=== PATIENT | male | born 1940 | race Caucasian/White ===

== ENCOUNTER 2024-05-08 15:15 | Emergency (ER) | payer MEDICARE, BC, SELFPAY ==
[2024-05-08 15:25] VITALS: BP 155/97; PULSE 65; TEMP 36.4; O2SAT 98
[2024-05-08 17:15] VITALS: BMI 22.8
[2024-05-08 17:24] VITALS: BP 154/88; PULSE 67; TEMP 36.6; O2SAT 99
--- NOTE | 2024-05-08 17:26 | XR_ITS ---
Examination: CT abdomen and pelvis without contrast. Coronal 3-D reconstructions. Sagittal 2-D reconstructions. Date and time of exam:May 08, 2024 at 1839 hrs. Indications: Mid abdominal pain diarrhea beginning 5 days ago CTDI: vol (mGy): 8.55 DLP: (mGycm): 428 Technique: Axial images of the abdomen have been obtained, 3 mm slice thickness Intravenous contrast material has not been administered. Low dose protocols were performed. One or more of the following dose reduction techniques were used; automated exposure control, adjustment of the mA and/or KV according to patient size, use of iterative reconstruction technique. Findings: Multiple liver cysts, the largest in the dome of the liver on the right 7.5 cm Gallbladder wall appears thickened Spleen is not enlarged No pancreatic edema or pancreatic mass Common hepatic duct 10 mm Abdominal aortic calcification no aneurysmal dilatation No renal or ureteral calculi, no hydronephrosis Abdominal aortic calcification no aneurysmal dilatation Appendix is not diagnostically visualized, no pericecal inflammatory change Colonic diverticulosis Suspicious for diverticulitis in the colon at junction descending colon and sigmoid colon, axial image 137 on this noncontrast study Mildly distended urinary bladder,. Large amounts of stool in the rectum Transverse prostate dimension 4.3 cm Impression: Recommend hepatobiliary sonography follow-up to exclude gallbladder wall thickening and assess common hepatic duct Suspicious for diverticulitis in the colon age and descending colon and sigmoid colon, recommend repeating this study with intravenous contrast
--- NOTE | 2024-05-08 17:28 | EKG_ITS ---
[facility] Test Date: 2024-05-08 Pat Name: BONIFACIO QUIROGA Department: Room: - Gender: Male Certified Nursing Assistant: : 1940 Requested By: Fazal Reid Order Number: [id number] Reading MD: Fazal Reid Measurements Intervals [place] Rate: 63 P: [place]: QRS: 74 QRSD: 110 T: 59 QT: 390 QTc: 400 Interpretive Statements ATRIAL FIBRILLATION ABNORMAL RHYTHM ECG Compared to ECG 06/27/2021 09:53:25 Sinus rhythm no longer present /store/S0/[id number]
--- NOTE | 2024-05-08 17:29 | PD.EDRME ---
Rapid Medical Screening Exam [facility] Arrival date/time: 05/08/24 15:15 CC: Left lower quadrant abdominal pain HPI ongoing for the past 2 weeks progressive increase in severity mostly days not at nighttime 1 episode of constipation denies bloody urination but states he is currently on Cipro for a urinary tract infection no other complaints. Chief Complaint: Abdominal Pain Time Seen by Provider: 05/08/24 16:50 Vital signs: Vital Signs Temperature 97.5 F 05/08/24 15:25 Pulse Rate 65 05/08/24 15:25 Blood Pressure 155/97 H 05/08/24 15:25 Pulse Oximetry (%) 98 05/08/24 15:25 Oxygen Delivery Method Room Air 05/08/24 15:25
[2024-05-08 17:58] LABS: Basophils % (Auto) 0 % (0-2.5); Eosinophils # (Auto) 0.2 Thou/mm3 (0.0-0.5); Eosinophils % (Auto) 2 % (0-10); Hematocrit 36.6 % (41.0-53.0); Immature Granulocytes % (Auto) 0 % (0-0); Immature Granulocytes Auto 0.03 Thou/mm3 (0.00-0.00); Lymphocytes # (Auto) 0.8 Thou/mm3 (1.0-4.8); Lymphocytes % (Auto) 8 % (10-50); Mean Corpuscular HGB Conc 35.5 g/dl (31.0-37.0); Mean Corpuscular Hemoglobin 33.4 pg (25.0-35.0); Mean Corpuscular Volume 94 fL (80-100); Monocytes # (Auto) 1.3 Thou/mm3 (0.0-0.8); Monocytes % (Auto) 14 % (0-12); Neutrophils # (Auto) 6.7 Thou/mm3 (1.8-7.7); Neutrophils % (Auto) 75 % (37-80); Nucleated Red Blood Cell % 0 /100 WBC (0); Platelet Count 147 Thou/mm3 (140-440); RDW Standard Deviation 45.3 fL (35.1-43.9); Red Blood Count 3.89 Miln/mm3 (4.50-5.90); White Blood Count 8.9 Thou/mm3 (3.8-10.6)
[2024-05-08 18:09] LABS: INR 1.1 (0.9-1.3); Partial Thromboplastin Time 31.5 Seconds (22.0-36.0); Prothrombin Time 11.6 Seconds (9.0-12.2)
[2024-05-08 18:11] LABS: B-Type Natriuretic Peptide 237 pg/mL (0-100)
[2024-05-08 18:12] LABS: Alanine Aminotransferase 30 U/L (10-49); Albumin, Serum 4.5 gm/dL (3.4-4.8); Albumin/Globulin Ratio 2.6 (1.2-2.2); Alkaline Phosphatase 78 U/L (46-116); Anion Gap 3 (7-16); Aspartate Amino Transferase 23 U/L (0-34); BUN/Creatinine Ratio 12 Ratio (12-20); Bilirubin,Total 0.9 mg/dL (0.3-1.2); Blood Urea Nitrogen 12 mg/dL (9-23); Calcium 9.2 mg/dL (8.3-10.6); Calcium (Corrected) 9.2 mg/dL (8.5-10.1); Carbon Dioxide 28.5 mMol/L (20.0-31.0); Chloride 91 mMol/L (98-107); Estimated Creatinine Clearance 59.3 mL/min (>60); Globulin 1.7 gm/dL (2.3-3.5); Glucose 94 mg/dL (74-106); Lipase 60 U/L (12-53); Osmolality,Calculated 245 (275-295); Sodium 122 mMol/L (136-145); Total Protein 6.2 gm/dL (5.7-8.2); eGFR > 60 See Note
--- NOTE | 2024-05-08 18:24 | PD.EDADULT ---
ED General RME/HPI General Chief complaint: Abdominal Pain Stated complaint: left lower ab pain Time Seen by Provider: 05/08/24 16:50 Arrival date/time: 05/08/24 15:15 CC: Left lower quadrant abdominal pain HPI ongoing for the past 4 days absent at night only during the days currently on ciprofloxacin for UTI denies fever chills chest pain painful urination bloody urination diarrhea and 1 episode of constipation. RME / HPI RME / HPI narrative: 05/08/24 15:15 CC: Left lower quadrant abdominal pain HPI ongoing for the past 2 weeks progressive increase in severity mostly days not at nighttime 1 episode of constipation denies bloody urination but states he is currently on Cipro for a urinary tract infection no other complaints. Related Data Home Medications ?Medication ?Instructions ?Recorded ?Confirmed omeprazole 20 mg capsule,delayed 20 mg PO QDAY ##0 07/19/15 12/11/23 release (Prilosec) trazodone 50 mg tablet 50 mg PO HS 09/24/18 12/11/23 aspirin 81 mg tablet 81 mg PO QDAY 03/27/20 08/14/23 ascorbic acid (vitamin C) 500 mg 500 mg PO QDAY 06/27/21 12/11/23 tablet (Vitamin C) calcium carb-ergocalciferol (vit 1 tab PO DAILY 06/27/21 12/11/23 D2) 500 mg (1,250 mg)-200 unit tablet coenzyme Q10 100 mg capsule 100 mg PO QDAY 06/27/21 12/11/23 (CoQ-10) fluticasone propionate 50 2 spray intranasal QDAY 06/27/21 12/11/23 mcg/actuation nasal spray,suspension melatonin 10 mg tablet 10 mg PO HS PRN Sleep 06/27/21 12/11/23 turmeric 400 mg capsule 400 mg PO DAILY 06/27/21 12/11/23 vitamin A-vitamin C-vit E-min 1 tab PO QDAY 06/27/21 12/11/23 tablet apixaban 5 mg tablet (Eliquis) 5 mg PO BID 06/09/23 12/11/23 losartan 25 mg tablet 25 mg PO QDAY 08/14/23 12/11/23 rosuvastatin 5 mg tablet 5 mg PO QDAY 08/14/23 12/11/23 vibegron 75 mg tablet (Gemtesa) 75 mg PO QDAY 08/14/23 12/11/23 Previous Rx's ?Medication ?Instructions ?Recorded cephalexin 500 mg capsule 500 mg PO BID #6 caps 09/19/21 dicyclomine 20 mg tablet 20 mg PO BID #14 tabs 05/08/24 meloxicam 7.5 mg tablet 7.5 mg PO QDAY #10 tabs 05/08/24 metronidazole 500 mg tablet 500 mg PO BID 14 days #28 tabs 05/08/24 ondansetron 4 mg disintegrating 4 mg PO Q8H #14 tabs 05/08/24 tablet Allergies Allergy/AdvReac Type Severity Reaction Status Date / Time Sulfa (Sulfonamide Allergy Severe UNKNOWN Verified 05/08/24 15:16 Antibiotics) Review of Systems Review of Systems Narrative Review of Systems: GEN: No fever, no chills, no weight loss EYES: No discharge, no visual changes, no pain HEENT: No ear pain, no congestion, no sore throat PULM: No shortness of breath, no cough, no congestion CV: No chest pain, no dyspnea on exertion, no palpitations GI: No nausea, no vomiting, no diarrhea, + pain, no constipation : No frequency, no urgency, no dysuria MUSC/SKEL: No joint pain, no back pain SKIN: No rash PSYCH: No hallucinations, no depression HEME/LYMPH: No easy bleeding or bruising tendencies NEURO: No weakness, no headache ED Exam Narrative Physical exam: [General: Thin but not emaciated not in any acute distress Head normocephalic HEENT: Within acceptable limits Neck is supple nontender Chest equal chest rise nontender to palpation Respiratory: Clear to auscultation no wheezes crackles or rubs CV: Rate rhythm is regular no murmurs rubs or clicks Abdomen is soft flat, no pain with deep palpation all 4 quadrants Back: No CVA tenderness no spinous process tenderness from cervical spine thoracic and lumbar spine Skin: Intact no petechiae rash induration ulceration or crepitus Extremities: Moving all extremity against resistance cap refill less than 2 seconds neurosensory intact Neuro: Awake alert oriented x3 Glascow coma 15 no focal deficits] Course Quality Measures none Orders Category Date Time Status EKG (ED ONLY) *Do not use* NOW Care 05/08/24 17:28 Completed NPO STAT Care 05/08/24 17:[address] abdomen pelvis wo con Stat Exams 05/08/24 17:26 Completed EKG (ED Only) Stat Exams 05/08/24 17:28 Draft B-Type Natriuretic Peptide Stat Lab 05/08/24 17:39 Completed CBC Stat Lab 05/08/24 17:39 Completed Comprehensive Metabolic Panel Stat Lab 05/08/24 17:39 Completed Drug Screen,Urine Stat Lab 05/08/24 17:28 Ordered Lipase Stat Lab 05/08/24 17:39 Completed Magnesium Stat Lab 05/08/24 17:39 Completed Partial Thromboplastin Time Stat Lab 05/08/24 17:39 Completed Prothrombin Time with INR Stat Lab 05/08/24 17:39 Completed Urinalysis Stat Lab 05/08/24 17:27 Ordered Vital Signs Vital signs: Vital Signs Temperature 97.5 F 05/08/24 15:25 Pulse Rate 65 05/08/24 15:25 Blood Pressure 155/97 H 05/08/24 15:25 Pulse Oximetry (%) 98 05/08/24 15:25 Oxygen Delivery Method Room Air 05/08/24 15:25 [facility] Patient data External records reviewed:: [facility] previous records Clinical information provided by:: patient Social determinants that could affect healthcare access:: none Patient has the following chronic illnesses:: On blood thinners hypertension How is presenting disease/condition affected by chronic disease/condition?: uneffected by Evaluation data The following diagnostics were reviewed and interpreted by me:: lab results and radiology exam(s) Lab and/or radiology exams considered but not ordered:: CBC shows no acute leukocytosis stable anemia no thrombocytopenia CMP shows no significant electrolyte imbalances renal impairment transaminitis or T. bili elevation Lipase is mildly elevated at 60 CT is positive for diverticulitis Interpretation Summary: Diverticulitis Medications Medications considered but not ordered:: None Medication administrations:: None Consultations Consultation(s) initiated? (list below): No Diagnosis Differential Diagnosis ED Complaint MDM: Diverticulitis diverticulosis ileus Most likely diagnosis given after review of the tests above:: Diverticulitis Admission Indicated Admission indicated?: not indicated Explain why admission is indicated or not indicated:: Stable for outpatient follow-up Admission Request Was there a request for admission?: No Disposition Plan Disposition Plan: Discharge Discharge Attestation Discharge Attestation: The patient and all family members were given an opportunity to ask questions and understood the discharge instructions. Discharge instructions specifically effects, indications for sooner follow up or return to the emergency department, and the expected course of current diagnosis. Patient condition: Stable Medical Decision Making Differential Diagnosis Differential Diagnosis: Diverticulitis diverticulosis ileus Lab Data 05/08/24 17:39 05/08/24 17:39 Labs: Lab Results 05/08/24 Range/Units 17:39 WBC 8.9 (3.8-10.6) Thou/mm3 RBC 3.89 L (4.50-5.90) Miln/mm3 Hgb 13.0 L (13.5-16.0) g/dL Hct 36.6 L (41.0-53.0) % MCV 94 (80-100) fL MCH 33.4 (25.0-35.0) pg MCHC 35.5 (31.0-37.0) g/dl RDW Std Deviation 45.3 H (35.1-43.9) fL Plt Count 147 (140-440) Thou/mm3 Neut % (Auto) 75 (37-80) % Lymph % (Auto) 8 L (10-50) % Stevens % (Auto) 14 H (0-12) % Eos % (Auto) 2 (0-10) % Baso % (Auto) 0 (0-2.5) % Neut # (Auto) 6.7 (1.8-7.7) Thou/mm3 Lymph # (Auto) 0.8 L (1.0-4.8) Thou/mm3 Stevens # (Auto) 1.3 H (0.0-0.8) Thou/mm3 Eos # (Auto) 0.2 (0.0-0.5) Thou/mm3 Baso # (Auto) 0.0 (0.0-0.2) Thou/mm3 Immature Gran # (Auto) 0.03 H (0.00-0.00) Thou/mm3 Absolute Nucleated RBC 0.00 (0.00-0.00) Thou/mm3 Immature Gran % 0 (0-0) % Nucleated RBC % 0 (0) /100 WBC PT 11.6 (9.0-12.2) Seconds INR 1.1 (0.9-1.3) APTT 31.5 (22.0-36.0) Seconds Sodium 122 L (136-145) mMol/L Potassium 5.0 (3.4-5.1) mMol/L Chloride 91 L (98-107) mMol/L Carbon Dioxide 28.5 (20.0-31.0) mMol/L Anion Gap 3 L (7-16) BUN 12 (9-23) mg/dL Creatinine 1.0 (0.6-1.3) mg/dL Estim Creat Clear Calc 59.3 L (>60) mL/min eGFR > 60 (60 - ) See Note BUN/Creatinine Ratio 12 (12-20) Ratio Glucose 94 (74-106) mg/dL Calculated Osmolality 245 L (275-295) Calcium 9.2 (8.3-10.6) mg/dL Corrected Calcium 9.2 (8.5-10.1) mg/dL Magnesium 2.0 (1.6-2.6) mg/dL Total Bilirubin 0.9 (0.3-1.2) mg/dL AST 23 (0-34) U/L ALT 30 (10-49) U/L Alkaline Phosphatase 78 (46-116) U/L B-Natriuretic Peptide 237 H (0-100) pg/mL Total Protein 6.2 (5.7-8.2) gm/dL Albumin 4.5 (3.4-4.8) gm/dL Globulin 1.7 L (2.3-3.5) gm/dL Albumin/Globulin Ratio 2.6 H (1.2-2.2) Lipase 60 H (12-53) U/L Discharge Plan Plan Patient Disposition: HOME (Self Care) Patient condition on transfer: Stable Prescriptions/Referrals Prescriptions/Med Rec: New metronidazole 500 mg tablet 500 mg PO BID 14 Days Qty: 28 0RF dicyclomine 20 mg tablet 20 mg PO BID Qty: 14 0RF ondansetron 4 mg tablet,disintegrating 4 mg PO Q8H Qty: 14 0RF meloxicam 7.5 mg tablet 7.5 mg PO QDAY Qty: 10 0RF No Action losartan 25 mg tablet 25 mg PO QDAY rosuvastatin 5 mg tablet 5 mg PO QDAY Gemtesa 75 mg tablet 75 mg PO QDAY Eliquis 5 mg tablet 5 mg PO BID omeprazole [Prilosec] 20 MG capsule,delayed release(DR/EC) 20 mg PO QDAY Qty: 0 Patient Comments: TO SUPPRESS GASTRIC ACID SECRETIONS ascorbic acid (vitamin C) [Vitamin C] 500 mg Tablet 500 mg PO QDAY calcium carbonate-vitamin D2 500 mg(1,250mg) -200 unit Tablet 1 tab PO DAILY fluticasone propionate 50 mcg/actuation [place],Suspension 2 spray INTRANASAL QDAY Hold Instructions: Resume on 10/04/21. vitamin A-vitamin C-vit E-min Tablet 1 tab PO QDAY coenzyme Q10 [CoQ-10] 100 mg Capsule 100 mg PO QDAY melatonin 10 mg Tablet 10 mg PO HS PRN (Reason: Sleep) turmeric 400 mg Capsule 400 mg PO DAILY cephalexin 500 mg capsule 500 mg PO BID Qty: 6 0RF trazodone 50 mg Tablet 50 mg PO HS aspirin 81 mg Tablet 81 mg PO QDAY Referrals: Ana Swann MD [Primary Care Provider] - In 1 week Problem List Clinical Impression: Diverticulitis, Abdominal pain, left lower quadrant Patient/Caregiver Discharge Instructions Education Materials: Abdominal Pain, ED Diet, [place] (Adult), ED Diverticulitis Additional Instructions: Take the medications as prescribed bland diet follow-up with your primary care provider if there is a worsening of symptoms spite of medications return the emergency room immediately for further evaluation. Print Language: Tamazight Stand Alone Forms: Keli Award Info., Work/School Release, Patient Portal Info Letter GAGAN/JASON Supervising Physician GAGAN/JASON Supervising Physician: Fazal Diego ENP
[2024-05-08 19:32] VITALS: RESP 18
== END 2024-05-08 19:32 | disposition home or self-care (01) ==
PROVIDERS: Registered Nurse General Practice; Emergency Provider Emergency Medicine; PCP Family Medicine
DX: K57.32 Diverticulitis of large intestine without perforation or abscess without bleeding (principal); I48.91 Unspecified atrial fibrillation; Z79.01 Long term (current) use of anticoagulants
CPT/HCPCS: 36415; 74176; 80053; 80307; 81001; 83690; 83735; 83880; 85025; 85610; 85730; 93005; 99284

== ENCOUNTER → 2024-05-24 | Outpatient (CLI) | payer MEDICARE, BC, SELFPAY ==
[2024-05-24 16:42] LABS: Lipase 54 U/L (12-53)
== END | disposition home or self-care (01) ==
LOC: COPL 14:37
PROVIDERS: PCP Family Medicine; Referring Provider Nurse Practitioner Family; Visit Provider Nurse Practitioner Family
DX: R74.8 Abnormal levels of other serum enzymes (principal)
CPT/HCPCS: 36415; 83690

== ENCOUNTER 2024-05-31 09:06 | Day surgery (SDC) | payer MEDICARE, BC, SELFPAY ==
--- NOTE | 2024-05-30 11:45 | EKG_ITS ---
[facility] Test Date: 2024-05-30 Pat Name: BONIFACIO QUIROGA Department: Room: - Gender: Male Fitness Professional: RSJC : 1940 Requested By: Sabino Carter Order Number: [id number] Reading MD: Sabino Carter Measurements Intervals [place] Rate: 56 P: [place]: QRS: 84 QRSD: 106 T: 64 QT: 414 QTc: 400 Interpretive Statements ATRIAL FIBRILLATION WITH SLOW VENTRICULAR RESPONSE ABNORMAL RHYTHM ECG Compared to ECG 05/08/2024 17:41:36 No significant changes /store/S0/[id number]/[id number]
[2024-05-30 12:36] LABS: Basophils % (Auto) 1 % (0-2.5); Eosinophils # (Auto) 0.2 Thou/mm3 (0.0-0.5); Eosinophils % (Auto) 3 % (0-10); Hematocrit 37.7 % (41.0-53.0); Hemoglobin 12.9 g/dL (13.5-16.0); Immature Granulocytes % (Auto) 0 % (0-0); Immature Granulocytes Auto 0.02 Thou/mm3 (0.00-0.00); Lymphocytes # (Auto) 0.6 Thou/mm3 (1.0-4.8); Lymphocytes % (Auto) 9 % (10-50); Mean Corpuscular HGB Conc 34.2 g/dl (31.0-37.0); Mean Corpuscular Hemoglobin 33.1 pg (25.0-35.0); Mean Corpuscular Volume 97 fL (80-100); Monocytes # (Auto) 0.8 Thou/mm3 (0.0-0.8); Monocytes % (Auto) 12 % (0-12); Neutrophils # (Auto) 4.9 Thou/mm3 (1.8-7.7); Neutrophils % (Auto) 75 % (37-80); Nucleated Red Blood Cell % 0 /100 WBC (0); Platelet Count 193 Thou/mm3 (140-440); RDW Standard Deviation 48.3 fL (35.1-43.9); White Blood Count 6.6 Thou/mm3 (3.8-10.6)
[2024-05-30 12:45] LABS: Anion Gap 3 (7-16); BUN/Creatinine Ratio 15 Ratio (12-20); Blood Urea Nitrogen 16 mg/dL (9-23); Calcium 9.2 mg/dL (8.3-10.6); Carbon Dioxide 29.7 mMol/L (20.0-31.0); Chloride 94 mMol/L (98-107); Creatinine (Component) 1.1 mg/dL (0.6-1.3); Glucose 84 mg/dL (74-106); Osmolality,Calculated 255 (275-295); Potassium 4.8 mMol/L (3.4-5.1); Sodium 127 mMol/L (136-145); eGFR > 60 See Note
[2024-05-30 12:51] LABS: Partial Thromboplastin Time 26.5 Seconds (22.0-36.0); Prothrombin Time 10.9 Seconds (9.0-12.2)
[2024-05-30 13:56] VITALS: BMI 22.4
[2024-05-31] VITALS (11 sets, daily range): BP systolic 118–166; BP diastolic 58–84; PULSE 48–63; RESP 11–18; TEMP 36.7–36.9; O2SAT 96–100; BMI 22.4
--- NOTE | 2024-05-31 10:36 | CHAP ---
Patient is known to me. We spoke briefly and had prayer for upcoming procedure.
--- NOTE | 2024-06-01 14:32 | ESOP_ITS ---
RE: BONIFACIO QUIROGA : 1940 DATE OF OPERATION: 05/31/2024 PROCEDURE PERFORMED: 1. Diagnostic right and left heart cardiac catheterization, selective coronary angiogram, and left ventricular angiogram, CPT 55909. 2. Conscious sedation 30 minute duration. 3. Ultrasound-guided access, right radial artery. 4. Left ventricular angiogram. DIAGNOSES: Severe aortic stenosis, shortness of breath and chest pain. HISTORY AND INDICATIONS: The patient is an 84-year-old male with a past medical history of atrial fibrillation, hypertension, severe aortic stenosis. He has been having progressive shortness of breath and minimal exertion and symptomatic severe aortic stenosis on maximum medical management. Cardiac echo showed evidence of severe aortic stenosis. The aortic velocity is close to 4 m/sec and normal ejection fraction. The patient was recommended to have TAVR procedure, transcatheter aortic valve replacement. Cardiac catheterization and coronary angiogram was recommended prior to recommending aortic valve replacement. DESCRIPTION OF PROCEDURE: The patient was brought to cardiac catheterization laboratory where he was given 2 mg of Versed and 50 mcg of fentanyl, conscious sedation. Right radial artery was cannulated by micropuncture technique and a 6-Kittitian Glidesheath was introduced. Right femoral approach was taken for femoral vein. Right femoral vein was cannulated by Seldinger technique and 7-Kittitian sheath was introduced. Right heart catheterization was performed with Finley-Rudolph catheter. Right heart pressures were measured. Left heart catheterization was performed by a 5-Kittitian AL1 diagnostic catheter. Pull back pressure was measured. Cardiac output was obtained. Subsequently, a 5-[place]ittitian Pigtail catheter was advanced into the aortic root. Aortic root angiogram was performed. Subsequently, selective right and left coronary angiogram performed by using a TIG-4 diagnostic catheter. The patient tolerated the procedure well. No complications. Cardiac catheterization showed following findings. HEMODYNAMICS: Right atrial pressure is 8 mmHg. RV pressure 34/2 mmHg. End-diastolic pressure 8 mmHg. PA pressure 30/11. Mean pressure 19 mmHg. Pulmonary artery wedge pressure and mean pressure 16, V-wave was 27. Left ventricle pressure is recorded to be 157. End diastolic pressure 10 mmHg. The aortic pressure is recorded to be 128/60 mmHg. There is a mean gradient of 32 mmHg across the aortic valve and aortic valve area was 0.8 square cm. Cardiac output was 3.9 L/min. Left ventricular angiogram showed normal left ventricular wall motion, ejection fraction 60%. Aortic valve area showed heavy calcification, very minimal opening. Aortic root angiogram showed evidence of normal-sized aorta. There was evidence of severe aortic stenosis and minimal aortic regurgitation. Coronary artery angiogram showed following findings. Right coronary artery is large and dominant, appeared normal, gives off PDA, posterior descending artery appeared normal. Left coronary system: Left main coronary artery is normal, left anterior descending artery appears normal, circumflex artery is normal and codominant. SUMMARY OF FINDINGS: 1. Severe calcific aortic stenosis, aortic valve area is 0.8 square cm. 2. Mean gradient of 32 mmHg across the aortic valve. 3. Nonobstructive normal epicardial coronary arteries. 4. Normal right heart pressures. 5. Normal pulmonary artery pressure. RECOMMENDATIONS: The patient has symptomatic severe calcific aortic stenosis. Recommended to have transcatheter aortic valve replacement surgery. We will refer the patient for TAVR program. Dr. Sanders will be performing the procedure. DT: 13:24:32 TT: 14:31:00 Ref: [id number] - TID: [id number]
== END 2024-05-31 15:00 | disposition home or self-care (01) ==
PROVIDERS: PCP Family Medicine; Referring Provider Internal Medicine Cardiovascular Disease; Visit Provider Internal Medicine Cardiovascular Disease
PROC: (CPT 93460; principal; 2024-05-31 10:30)
DX: I25.118 Atherosclerotic heart disease of native coronary artery with other forms of angina pectoris (principal); I50.32 Chronic diastolic (congestive) heart failure; I35.0 Nonrheumatic aortic (valve) stenosis; Z01.810 Encounter for preprocedural cardiovascular examination; I48.21 Permanent atrial fibrillation; I34.0 Nonrheumatic mitral (valve) insufficiency; I70.213 Atherosclerosis of native arteries of extremities with intermittent claudication, bilateral legs; I11.0 Hypertensive heart disease with heart failure; I48.91 Unspecified atrial fibrillation
CPT/HCPCS: 93460; 36415; 80048; 85025; 85610; 85730; 93005; 99152; 99153; A4649; C1769; C1887; C1894; J0171; J0461; J1643; J2250; J2310; J2371; J3010; J3490; Q9967; J1644; J2305

== ENCOUNTER → 2024-05-31 | Outpatient (CLI) | payer MEDICARE, BC, SELFPAY ==
[2024-05-31 15:57] LABS: Collection Type, Urine Clean Catch; Squamous Epithelial Cell,Urine 0 /hpf (0-5)
[2024-05-31 18:07] LABS: Bilirubin,Urine Negative (Negative); Blood,Urine Negative (Negative); Clarity,Urine Clear (Clear/Hazy); Color,Urine Lt-Yellow (Lt Yel-Yel); Glucose, Urine Negative (Negative); Ketones,Urine Negative (Negative); Leukocyte Esterase,Urine Negative (Negative); Nitrite,Urine Negative (Negative); PH,Urine 6.5 (5.0-7.0); Protein,Urine Negative (Neg - Trace); RBC,Urine < 1 /hpf (0-3); Specific Gravity,Urine 1.008 (1.001-1.035); Urobilinogen,Urine Negative mg/dL (0.0-1.0); WBC,Urine 3 /hpf (0-5)
== END | disposition home or self-care (01) ==
LOC: SLDO 15:43
PROVIDERS: PCP Family Medicine; Referring Provider Nurse Practitioner Family; Visit Provider Nurse Practitioner Family
DX: N41.0 Acute prostatitis (principal); J01.90 Acute sinusitis, unspecified
CPT/HCPCS: 81001; 87086

== ENCOUNTER → 2024-06-03 | Outpatient (BNVA) | payer MEDICARE, BC, SELFPAY | END | disposition home or self-care (01) | PROVIDERS: PCP Family Medicine; Referring Provider Family Medicine; Visit Provider Urology | DX: N40.1 Benign prostatic hyperplasia with lower urinary tract symptoms (principal); N13.8 Other obstructive and reflux uropathy; N31.9 Neuromuscular dysfunction of bladder, unspecified; N39.0 Urinary tract infection, site not specified; I10 Essential (primary) hypertension; K21.9 Gastro-esophageal reflux disease without esophagitis | CPT/HCPCS: 99212; G0463 ==

== ENCOUNTER 2024-06-15 22:04 | Emergency (ER) | payer MEDICARE, BC, SELFPAY ==
[2024-06-15 22:06] VITALS: BMI 23.0
[2024-06-15 22:39] VITALS: BP 139/82; PULSE 89; RESP 18; TEMP 36.9; O2SAT 98
[2024-06-15] MEDS: AMOXICILLIN/POT CLAV 875 TABLET 1 TAB PO (23:14)
[2024-06-15] MEDS: DIPHTH,PERTUSS(ACELL),TET VAC 0.5 ML VIAL IMi (23:16)
[2024-06-15] MEDS: LIDOCAINE HCL 1% 20 ML VIAL INFL (23:16)
[2024-06-15] MEDS: BACITRACIN OINT 1 GM PACKET TOP (23:24)
--- NOTE | 2024-06-15 23:51 | EDNOTE_ITS ---
ED Wound/Laceration-RME/HPI General Chief Complaint: Extremity Injury, Lower Stated Complaint: INJURY TO LEFT LEG Time Seen by Provider: 06/15/24 22:41 Arrival date/time: 06/15/24 22:04 RME / HPI RME / HPI narrative: This section includes all my notes and documentations, including HPI, PE, and ED course. Jaswant Richards MD HPI: 84-year-old male here to be evaluated with left lower leg laceration. Occurred at home just prior to arrival. He had to get up on his kitchen counter to fix his sliding patio door. As he was getting down, he sustained a laceration on a metal doorknob of a cupboard. He didn't fall. No head injury. No other complaints. ROS: All negative except as documented in HPI. Physical Exam: General: Alert and oriented. No acute distress when remaining still. Eyes: Conjunctivae and lids clear. ENT: No nasal congestion. Neck: Supple. Lungs: No respiratory distress. Skin: Warm and dry. In the left lower leg, there is a curved 12 cm full?skin thickness laceration with active bleeding. Multiple abrasions noted in the left hand and left lower leg, varying size and shape. Neuro: Alert and oriented X 3. Musculoskeletal: All major joints and bones are not tender with no limited ROM. Laceration repair procedure note: The wound was prepped and draped in normal sterile fashion. Local anesthesia achieved with 1% lidocaine. Profuse irrigation performed under the sink with soap and water and with normal saline. Wound repaired with 16 simple sutures using 4-0 nylon. Good approximation and hemostasis achieved. Tdap and Augmentin annual 75 mg given. Topical ABX and dressing applied. Patient tolerated well with no complications. Provided good wound care instructions. Based on my best medical judgment, made decision no further evaluation or treatment indicated at this time. Patient understands and agrees to the discharge instructions customized and printed, see below. Discharge instructions from Dr. Richards:? -- Your laceration was repaired with 16 stitches. -- Keep the current dressing intact for 48 hours. -- After 48 hours, change the dressing once daily. -- First remove the dressing gently.? If it does not come off easily, run water through it until it comes off easily. -- Then gently wash with soap and water. -- After completely drying, apply antibiotic ointment and new dressing. -- Elevate above the waist level today and tomorrow as much as possible.? -- Take Augmentin to prevent infection. -- See your doctor or return here in 10-14 days for suture removal.? Total of 16 stitches. -- Seek immediate medical care with fever, spreading redness from the wound, or with any concerns. Jaswant Richards MD Related Data Home Medications ?Medication ?Instructions ?Recorded ?Confirmed omeprazole 20 mg capsule,delayed 20 mg PO QDAY ##0 07/19/15 06/03/24 release (Prilosec) trazodone 50 mg tablet 100 mg PO HS 09/24/18 06/03/24 apixaban 5 mg tablet (Eliquis) 5 mg PO BID 06/09/23 06/03/24 losartan 25 mg tablet 25 mg PO QDAY 08/14/23 06/03/24 rosuvastatin 5 mg tablet 5 mg PO QDAY 08/14/23 06/03/24 vibegron 75 mg tablet (Gemtesa) 75 mg PO QDAY 08/14/23 06/03/24 furosemide 20 mg tablet (Lasix) 20 mg PO BID 05/31/24 06/03/24 metoprolol tartrate 50 mg tablet 50 mg PO QDAY 05/31/24 06/03/24 spironolactone 25 mg tablet 25 mg PO BID 05/31/24 06/03/24 amoxicillin 250 mg-potassium 1 tab PO BID 06/03/24 06/03/24 clavulanate 125 mg tablet methenamine hippurate 1 gram tablet 1 g PO BID 06/03/24 06/03/24 tramadol 50 mg tablet 50 mg PO QDAY 06/03/24 06/03/24 Previous Rx's ?Medication ?Instructions ?Recorded acetaminophen 300 mg-codeine 30 mg 2 tab PO TID PRN pain #4 tabs 06/15/24 tablet amoxicillin 875 mg-potassium 1 tab PO BID #4 tabs 06/15/24 clavulanate 125 mg tablet Allergies Allergy/AdvReac Type Severity Reaction Status Date / Time Sulfa (Sulfonamide Allergy Severe UNKNOWN Verified 06/15/24 22:09 Antibiotics) Course Quality Measures none Orders Category Date Time Status Wound Care [Wound Care] NOW Care 06/15/24 22:52 Completed Drug Screen,Urine Stat Lab 06/15/24 23:57 Completed Urinalysis Stat Lab 06/15/24 23:57 Completed Urine Culture Stat Lab 06/15/24 23:57 Received Amoxicillin/Pot Clav 875 [Augmentin 875] Med 06/15/24 22:51 Discontinued 1 tab PO X1 ONE Bacitracin Oint pkt Med 06/15/24 22:51 Discontinued 1 gm TOP X1 ONE Lidocaine 1% 20 ml [Xylocaine 1% 20 ML] Med 06/15/24 22:51 Discontinued 20 ml INFL X1 ONE Tet,Diphth,Pertuss(Acell)-Tdap [Boostrix Vacc] Med 06/15/24 22:51 Discontinued 0.5 ml IMI .ONCE ONE Vital Signs Vital signs: Vital Signs Temperature 98.4 F 06/15/24 22:39 Pulse Rate 89 06/15/24 22:39 Respiratory Rate 18 06/15/24 22:39 Blood Pressure 139/82 H 06/15/24 22:39 Pulse Oximetry (%) 98 06/15/24 22:39 Oxygen Delivery Method Room Air 06/15/24 22:39 Procedures -ED Laceration Laceration 1: Site: lower extremity Side (If applicable): left Size (cm): 12 Description: flap Depth: simple, single layer Local Anesthetic: lidocaine 1% Amount of anesthesia used (mL): 12 Pre-repair: irrigated extensively Skin layer closed with: nylon Size (cm): 4-0 Number of sutures: 16 Technique: simple, interrupted Wound / Laceration Patient data External records reviewed:: [facility] previous records Clinical information provided by:: patient and family Social determinants that could affect healthcare access:: none Patient has the following chronic illnesses:: Hypertension How is presenting disease/condition affected by chronic disease/condition?: uneffected by Evaluation data The following diagnostics were reviewed and interpreted by me:: other (specify) (No diagnostic tests ordered) Lab and/or radiology exams considered but not ordered:: None Interpretation Summary: No diagnostic tests ordered Medications / Prescriptions Medications or Prescriptions considered but not ordered:: None Medication administrations:: Medication Administration History Discontinued Medications Amoxicillin/Clavulanate Potassium (Amoxicillin/Pot Clav 875 Tablet) 1 tab PO X1 ONE Stop: 06/15/24 22:52 Last Admin: 06/15/24 23:14 Dose: 1 tab Documented By: Bacitracin (Bacitracin Oint 1 Gm Packet) 1 gm TOP X1 ONE Stop: 06/15/24 22:52 Last Admin: 06/15/24 23:24 Dose: 1 gm Documented By: Diphtheria/Tetanus/Acell Pertussis (Diphth,Pertuss(Acell),Tet Vac 0.5 Ml Vial) 0.5 ml IMi .ONCE ONE Stop: 06/15/24 22:52 Last Admin: 06/15/24 23:16 Dose: 0.5 ml Documented By: Lidocaine HCl (Lidocaine Hcl 1% 20 Ml Vial) 20 ml INFL X1 ONE Stop: 06/15/24 22:52 Last Admin: 06/15/24 23:16 Dose: 20 ml Documented By: Tdap and lidocaine and topical bacitracin and Augmentin Consultations Consultation(s) initiated? (list below): No Diagnosis Wound Differential Diagnosis: laceration and abrasion Most likely diagnosis given after review of the tests above:: Laceration and abrasions Admission Indicated Admission indicated?: not indicated Explain why admission is indicated or not indicated:: Admission criteria not met Admission Request Was there a request for admission?: No Disposition Plan Disposition Plan: Discharge Discharge Attestation Discharge Attestation: The patient and all family members were given an opportunity to ask questions and understood the discharge instructions. Discharge instructions specifically effects, indications for sooner follow up or return to the emergency department, and the expected course of current diagnosis. Patient condition: Stable Discharge Plan Plan Patient Disposition: HOME (Self Care) Prescriptions/Referrals Prescriptions/Med Rec: New acetaminophen-codeine 300-30 mg tablet 2 tab PO TID MDD 6 PRN (Reason: pain) Qty: 4 0RF amoxicillin-pot clavulanate 875-125 mg tablet 1 tab PO BID Qty: 4 0RF No Action losartan 25 mg tablet 25 mg PO QDAY rosuvastatin 5 mg tablet 5 mg PO QDAY Gemtesa 75 mg tablet 75 mg PO QDAY amoxicillin-pot clavulanate 250-125 mg tablet 1 tab PO BID tramadol 50 mg tablet 50 mg PO QDAY methenamine hippurate 1 gram tablet 1 g PO BID Eliquis 5 mg tablet 5 mg PO BID Hold Instructions: Resume on 12/12/24. omeprazole [Prilosec] 20 MG capsule,delayed release(DR/EC) 20 mg PO QDAY Qty: 0 Patient Comments: TO SUPPRESS GASTRIC ACID SECRETIONS trazodone 50 mg Tablet 100 mg PO HS spironolactone 25 mg Tablet 25 mg PO BID metoprolol tartrate 50 mg Tablet 50 mg PO QDAY furosemide [Lasix] 20 mg Tablet 20 mg PO BID Referrals: Ana Swann MD [Primary Care Provider] - In 1 week Problem List Clinical Impression: Laceration of left lower leg, Multiple abrasions Patient/Caregiver Discharge Instructions Discharge Activity: activity as tolerated Education Materials: ED Laceration: All Closures Additional Instructions: Discharge instructions from Dr. Richards:? -- Your laceration was repaired with 16 stitches. -- Keep the current dressing intact for 48 hours. -- After 48 hours, change the dressing once daily. -- First remove the dressing gently.? If it does not come off easily, run water through it until it comes off easily. -- Then gently wash with soap and water. -- After completely drying, apply antibiotic ointment and new dressing. -- Elevate above the waist level today and tomorrow as much as possible.? -- Take Augmentin to prevent infection. -- See your doctor or return here in 10-14 days for suture removal.? Total of 16 stitches. -- Seek immediate medical care with fever, spreading redness from the wound, or with any concerns. Print Language: Hebrew Stand Alone Forms: Keli Award Info., Patient Portal Info Letter
[2024-06-16 00:03] LABS: Collection Type, Urine Clean Catch; RBC,Urine 0 /hpf (0-3); Squamous Epithelial Cell,Urine 0 /hpf (0-5)
[2024-06-16 00:13] LABS: Bacteria,Urine Rare; Bilirubin,Urine Negative (Negative); Blood,Urine Negative (Negative); Clarity,Urine Clear (Clear/Hazy); Color,Urine Yellow (Lt Yel-Yel); Glucose, Urine Negative (Negative); Ketones,Urine Negative (Negative); Leukocyte Esterase,Urine Positive (Negative); Nitrite,Urine Negative (Negative); PH,Urine 6.5 (5.0-7.0); Protein,Urine Trace (Neg - Trace); Specific Gravity,Urine 1.018 (1.001-1.035); Urobilinogen,Urine Negative mg/dL (0.0-1.0); WBC,Urine 11 /hpf (0-5)
[2024-06-16 01:01] LABS: Amphetamine/Methamp Scrn,U Negative (Negative); Barbiturate Screen,Urine Negative (Negative); Benzodiazepines Screen,Urine Negative (Negative); Benzoylecgonine Screen, Ur Negative (Negative); Fentanyl Screen,Urine Negative (Negative); Opiate Screen,Urine Negative (Negative); THC Screen,Urine Negative (Negative)
== END 2024-06-16 00:44 | disposition home or self-care (01) ==
PROVIDERS: Emergency Provider Emergency Medicine; PCP Family Medicine
DX: S81.812A Laceration without foreign body, left lower leg, initial encounter (principal); S60.512A Abrasion of left hand, initial encounter; W22.8XXA Striking against or struck by other objects, initial encounter; Y93.89 Activity, other specified; Y92.000 Kitchen of unspecified non-institutional (private) residence as the place of occurrence of the external cause; Z23 Encounter for immunization
CPT/HCPCS: 12004; 80307; 80320; 81001; 87077; 87086; 87186; 90471; 90715; 99283; J3490; A9270; G0480

== ENCOUNTER → 2024-06-20 | Outpatient (CLI) | payer MEDICARE, BC, SELFPAY | END | disposition home or self-care (01) | LOC: SLDO 16:13 | PROVIDERS: PCP Nurse Practitioner Family; Referring Provider Nurse Practitioner Family; Visit Provider Nurse Practitioner Family | DX: L03.116 Cellulitis of left lower limb (principal) | CPT/HCPCS: 87070; 87205 ==

== ENCOUNTER → 2024-06-23 | Outpatient (CLI) | payer MEDICARE, BC, SELFPAY | END | disposition home or self-care (01) | LOC: SLDO 15:41 | PROVIDERS: PCP Nurse Practitioner Family; Referring Provider Nurse Practitioner Family; Visit Provider Nurse Practitioner Family | DX: S81.812D Laceration without foreign body, left lower leg, subsequent encounter (principal); X58.XXXD Exposure to other specified factors, subsequent encounter | CPT/HCPCS: 87070; 87075; 87205 ==

== ENCOUNTER → 2024-07-15 | Outpatient (CLI) | payer MEDICARE, BC, SELFPAY ==
[2024-07-15 14:58] LABS: Collection Type, Urine Clean Catch; Squamous Epithelial Cell,Urine 0 /hpf (0-5)
[2024-07-15 16:11] LABS: Bilirubin,Urine Negative (Negative); Blood,Urine 1+ (Negative); Glucose, Urine Negative (Negative); Ketones,Urine Negative (Negative); Leukocyte Esterase,Urine Positive (Negative); Nitrite,Urine Negative (Negative); PH,Urine 6.5 (5.0-7.0); Protein,Urine 1+ (Neg - Trace); RBC,Urine 6 /hpf (0-3); Specific Gravity,Urine 1.006 (1.001-1.035); Urobilinogen,Urine Negative mg/dL (0.0-1.0); WBC,Urine 669 /hpf (0-5)
[2024-07-15 16:15] LABS: Clarity,Urine Turbid (Clear/Hazy); Color,Urine Amber (Lt Yel-Yel)
== END | disposition home or self-care (01) ==
LOC: COPL 14:50
PROVIDERS: PCP Nurse Practitioner Family; Referring Provider Nurse Practitioner Family; Visit Provider Nurse Practitioner Family
DX: N30.00 Acute cystitis without hematuria (principal)
CPT/HCPCS: 81001; 87077; 87086; 87186

== ENCOUNTER → 2024-07-26 | Outpatient (CLI) | payer MEDICARE, BC, SELFPAY | END | disposition home or self-care (01) | PROVIDERS: PCP Nurse Practitioner Family; Referring Provider Nurse Practitioner Family; Visit Provider Student in an Organized Health Care Education/Training Program | DX: S81.802A Unspecified open wound, left lower leg, initial encounter (principal); W19.XXXA Unspecified fall, initial encounter; L97.822 Non-pressure chronic ulcer of other part of left lower leg with fat layer exposed; C44.202 Unspecified malignant neoplasm of skin of right ear and external auricular canal; E03.9 Hypothyroidism, unspecified; I05.0 Rheumatic mitral stenosis; I35.0 Nonrheumatic aortic (valve) stenosis; N40.0 Benign prostatic hyperplasia without lower urinary tract symptoms; H91.90 Unspecified hearing loss, unspecified ear; K21.9 Gastro-esophageal reflux disease without esophagitis | CPT/HCPCS: 11042; 97597; 99213; A9270; G0463 ==

== ENCOUNTER → 2024-07-28 | Outpatient (CLI) | payer MEDICARE, BC, SELFPAY | END | disposition home or self-care (01) | LOC: SWHD 15:12 | PROVIDERS: Visit Provider Student in an Organized Health Care Education/Training Program | DX: S81.802A Unspecified open wound, left lower leg, initial encounter (principal); X58.XXXA Exposure to other specified factors, initial encounter; L97.822 Non-pressure chronic ulcer of other part of left lower leg with fat layer exposed; C44.202 Unspecified malignant neoplasm of skin of right ear and external auricular canal; I05.0 Rheumatic mitral stenosis; I35.0 Nonrheumatic aortic (valve) stenosis; N40.0 Benign prostatic hyperplasia without lower urinary tract symptoms; H91.90 Unspecified hearing loss, unspecified ear; K21.9 Gastro-esophageal reflux disease without esophagitis | CPT/HCPCS: 29580 ==

== ENCOUNTER → 2024-08-02 | Outpatient (CLI) | payer MEDICARE, BC, SELFPAY | END | disposition home or self-care (01) | LOC: SWHD 10:03 | PROVIDERS: Referring Provider Student in an Organized Health Care Education/Training Program; Visit Provider Student in an Organized Health Care Education/Training Program | DX: S81.802A Unspecified open wound, left lower leg, initial encounter (principal); W19.XXXA Unspecified fall, initial encounter; L97.822 Non-pressure chronic ulcer of other part of left lower leg with fat layer exposed; C44.202 Unspecified malignant neoplasm of skin of right ear and external auricular canal; E03.9 Hypothyroidism, unspecified; I05.0 Rheumatic mitral stenosis; I35.0 Nonrheumatic aortic (valve) stenosis; N40.0 Benign prostatic hyperplasia without lower urinary tract symptoms; H91.90 Unspecified hearing loss, unspecified ear; K21.9 Gastro-esophageal reflux disease without esophagitis | CPT/HCPCS: 11042; A9270 ==

== ENCOUNTER → 2024-08-03 | Outpatient (CLI) | payer MEDICARE, BC, SELFPAY ==
[2024-08-03 17:28] LABS: Collection Type, Urine Clean Catch
[2024-08-03 18:04] LABS: Bacteria,Urine Rare; Bilirubin,Urine Negative (Negative); Blood,Urine Negative (Negative); Clarity,Urine Turbid (Clear/Hazy); Color,Urine Lt-Yellow (Lt Yel-Yel); Glucose, Urine Negative (Negative); Ketones,Urine Negative (Negative); Leukocyte Esterase,Urine Positive (Negative); Nitrite,Urine Negative (Negative); Protein,Urine Negative (Neg - Trace); RBC,Urine 14 /hpf (0-3); Specific Gravity,Urine 1.006 (1.001-1.035); Squamous Epithelial Cell,Urine < 1 /hpf (0-5); Urobilinogen,Urine Negative mg/dL (0.0-1.0); WBC,Urine 168 /hpf (0-5)
== END | disposition home or self-care (01) ==
LOC: SLDO 17:23
PROVIDERS: PCP Nurse Practitioner Family; Referring Provider Nurse Practitioner Family; Visit Provider Nurse Practitioner Family
DX: N30.00 Acute cystitis without hematuria (principal)
CPT/HCPCS: 81001; 87077; 87086; 87186

== ENCOUNTER → 2024-08-10 | Outpatient (CLI) | payer MEDICARE, BC, SELFPAY ==
[2024-08-10 16:29] LABS: Collection Type, Urine Clean Catch; Squamous Epithelial Cell,Urine 0 /hpf (0-5)
[2024-08-10 18:28] LABS: Bilirubin,Urine Negative (Negative); Blood,Urine Negative (Negative); Clarity,Urine Clear (Clear/Hazy); Color,Urine Lt-Yellow (Lt Yel-Yel); Glucose, Urine Negative (Negative); Ketones,Urine Negative (Negative); Leukocyte Esterase,Urine Positive (Negative); Nitrite,Urine Negative (Negative); PH,Urine 6.5 (5.0-7.0); Protein,Urine Negative (Neg - Trace); RBC,Urine 5 /hpf (0-3); Specific Gravity,Urine 1.009 (1.001-1.035); Urobilinogen,Urine Negative mg/dL (0.0-1.0); WBC,Urine 105 /hpf (0-5)
== END | disposition home or self-care (01) ==
LOC: SLDO 16:16
PROVIDERS: PCP Registered Nurse; Referring Provider Registered Nurse; Visit Provider Registered Nurse
DX: N39.0 Urinary tract infection, site not specified (principal)
CPT/HCPCS: 81001; 87086

== ENCOUNTER → 2024-08-11 | Outpatient (CLI) | payer MEDICARE, BC, SELFPAY | END | disposition home or self-care (01) | LOC: SWHD 09:40 | PROVIDERS: PCP Family Medicine; Referring Provider Family Medicine; Visit Provider Student in an Organized Health Care Education/Training Program | DX: S81.802A Unspecified open wound, left lower leg, initial encounter (principal); W19.XXXA Unspecified fall, initial encounter; L97.822 Non-pressure chronic ulcer of other part of left lower leg with fat layer exposed; C44.202 Unspecified malignant neoplasm of skin of right ear and external auricular canal; E03.9 Hypothyroidism, unspecified; I05.0 Rheumatic mitral stenosis; I35.0 Nonrheumatic aortic (valve) stenosis; N40.0 Benign prostatic hyperplasia without lower urinary tract symptoms; H91.90 Unspecified hearing loss, unspecified ear; K21.9 Gastro-esophageal reflux disease without esophagitis | CPT/HCPCS: 11042; A9270 ==

== ENCOUNTER → 2024-08-15 | Outpatient (BNVA) | payer MEDICARE, BC, SELFPAY | END | disposition home or self-care (01) | PROVIDERS: PCP Nurse Practitioner Family; Referring Provider Nurse Practitioner Family; Visit Provider Urology | DX: N40.1 Benign prostatic hyperplasia with lower urinary tract symptoms (principal); N13.8 Other obstructive and reflux uropathy; N31.9 Neuromuscular dysfunction of bladder, unspecified; N39.0 Urinary tract infection, site not specified; I10 Essential (primary) hypertension; K21.9 Gastro-esophageal reflux disease without esophagitis | CPT/HCPCS: 99212; G0463 ==

== ENCOUNTER → 2024-08-16 | Outpatient (CLI) | payer MEDICARE, BC, SELFPAY | END | disposition home or self-care (01) | LOC: SWHD 14:15 | PROVIDERS: Visit Provider Surgery | DX: S81.802A Unspecified open wound, left lower leg, initial encounter (principal); W19.XXXA Unspecified fall, initial encounter; L97.822 Non-pressure chronic ulcer of other part of left lower leg with fat layer exposed; C44.202 Unspecified malignant neoplasm of skin of right ear and external auricular canal; E03.9 Hypothyroidism, unspecified; I05.0 Rheumatic mitral stenosis; I35.0 Nonrheumatic aortic (valve) stenosis; N40.0 Benign prostatic hyperplasia without lower urinary tract symptoms; H91.90 Unspecified hearing loss, unspecified ear; K21.9 Gastro-esophageal reflux disease without esophagitis | CPT/HCPCS: 11042; A9270 ==

== ENCOUNTER → 2024-08-23 | Outpatient (CLI) | payer MEDICARE, BC, SELFPAY | END | disposition home or self-care (01) | LOC: SWHD 14:08 | PROVIDERS: Visit Provider Student in an Organized Health Care Education/Training Program | DX: S81.802A Unspecified open wound, left lower leg, initial encounter (principal); X58.XXXA Exposure to other specified factors, initial encounter; L97.822 Non-pressure chronic ulcer of other part of left lower leg with fat layer exposed; C44.202 Unspecified malignant neoplasm of skin of right ear and external auricular canal; E03.9 Hypothyroidism, unspecified; I05.0 Rheumatic mitral stenosis; I35.0 Nonrheumatic aortic (valve) stenosis; N40.0 Benign prostatic hyperplasia without lower urinary tract symptoms; H91.90 Unspecified hearing loss, unspecified ear; K21.9 Gastro-esophageal reflux disease without esophagitis | CPT/HCPCS: 97597; A9270 ==

== ENCOUNTER → 2024-08-30 | Outpatient (CLI) | payer MEDICARE, BC, SELFPAY | END | disposition home or self-care (01) | LOC: SWHD 11:22 | PROVIDERS: Visit Provider Surgery | DX: S81.802A Unspecified open wound, left lower leg, initial encounter (principal); X58.XXXA Exposure to other specified factors, initial encounter; L97.822 Non-pressure chronic ulcer of other part of left lower leg with fat layer exposed; C44.202 Unspecified malignant neoplasm of skin of right ear and external auricular canal; E03.9 Hypothyroidism, unspecified; I05.0 Rheumatic mitral stenosis; I35.0 Nonrheumatic aortic (valve) stenosis; N40.0 Benign prostatic hyperplasia without lower urinary tract symptoms; H91.90 Unspecified hearing loss, unspecified ear; K21.9 Gastro-esophageal reflux disease without esophagitis | CPT/HCPCS: 97597; A9270 ==

== ENCOUNTER → 2024-09-08 | Outpatient (CLI) | payer MEDICARE, BC, SELFPAY | END | disposition home or self-care (01) | LOC: SWHD 11:19 | PROVIDERS: Visit Provider Student in an Organized Health Care Education/Training Program | DX: S81.802A Unspecified open wound, left lower leg, initial encounter (principal); W19.XXXA Unspecified fall, initial encounter; L97.822 Non-pressure chronic ulcer of other part of left lower leg with fat layer exposed; C44.202 Unspecified malignant neoplasm of skin of right ear and external auricular canal; E03.9 Hypothyroidism, unspecified; I05.0 Rheumatic mitral stenosis; I35.0 Nonrheumatic aortic (valve) stenosis; N40.0 Benign prostatic hyperplasia without lower urinary tract symptoms; H91.90 Unspecified hearing loss, unspecified ear; K21.9 Gastro-esophageal reflux disease without esophagitis | CPT/HCPCS: 29581; A9270 ==

== ENCOUNTER → 2024-09-15 | Outpatient (CLI) | payer MEDICARE, BC, SELFPAY | END | disposition home or self-care (01) | LOC: SWHD 11:18 | PROVIDERS: PCP Nurse Practitioner Family; Referring Provider Nurse Practitioner Family; Visit Provider Student in an Organized Health Care Education/Training Program | DX: S81.802A Unspecified open wound, left lower leg, initial encounter (principal); W19.XXXA Unspecified fall, initial encounter; L97.822 Non-pressure chronic ulcer of other part of left lower leg with fat layer exposed; C44.202 Unspecified malignant neoplasm of skin of right ear and external auricular canal; E03.9 Hypothyroidism, unspecified; I05.0 Rheumatic mitral stenosis; I35.0 Nonrheumatic aortic (valve) stenosis; N40.0 Benign prostatic hyperplasia without lower urinary tract symptoms; H91.90 Unspecified hearing loss, unspecified ear; K21.9 Gastro-esophageal reflux disease without esophagitis | CPT/HCPCS: 99213; A9270; G0463 ==

== ENCOUNTER → 2024-10-04 | Outpatient (BNVA) | payer MEDICARE, BC, SELFPAY | END | disposition home or self-care (01) | PROVIDERS: PCP Family Medicine; Referring Provider Family Medicine; Visit Provider Urology | DX: N40.0 Benign prostatic hyperplasia without lower urinary tract symptoms (principal); N31.9 Neuromuscular dysfunction of bladder, unspecified; Z87.440 Personal history of urinary (tract) infections; I10 Essential (primary) hypertension; Z95.2 Presence of prosthetic heart valve | CPT/HCPCS: 81003; 99212; G0463 ==

== ENCOUNTER → 2024-10-06 | Outpatient (CLI) | payer MEDICARE, BC, SELFPAY | END | disposition home or self-care (01) | LOC: SWHD 11:02 | PROVIDERS: PCP Nurse Practitioner Family; Referring Provider Nurse Practitioner Family; Visit Provider Student in an Organized Health Care Education/Training Program | DX: S81.802A Unspecified open wound, left lower leg, initial encounter (principal); W19.XXXA Unspecified fall, initial encounter; L97.822 Non-pressure chronic ulcer of other part of left lower leg with fat layer exposed; C44.202 Unspecified malignant neoplasm of skin of right ear and external auricular canal; E03.9 Hypothyroidism, unspecified; I05.9 Rheumatic mitral valve disease, unspecified; I35.0 Nonrheumatic aortic (valve) stenosis; N40.0 Benign prostatic hyperplasia without lower urinary tract symptoms; H91.90 Unspecified hearing loss, unspecified ear; K21.9 Gastro-esophageal reflux disease without esophagitis; R60.0 Localized edema; R58 Hemorrhage, not elsewhere classified | CPT/HCPCS: 99212; G0463 ==

== ENCOUNTER → 2024-10-28 | Outpatient (CLI) | payer MEDICARE, BC, SELFPAY ==
[2024-10-28 16:20] LABS: Collection Type, Urine Clean Catch
[2024-10-28 18:04] LABS: Bacteria,Urine 1+; Bilirubin,Urine Negative (Negative); Blood,Urine 1+ (Negative); Color,Urine Yellow (Lt Yel-Yel); Glucose, Urine Negative (Negative); Ketones,Urine Negative (Negative); Leukocyte Esterase,Urine Positive (Negative); Nitrite,Urine Negative (Negative); PH,Urine 5.5 (5.0-7.0); Protein,Urine 1+ (Neg - Trace); RBC,Urine 3 /hpf (0-3); Specific Gravity,Urine 1.015 (1.001-1.035); Squamous Epithelial Cell,Urine 1 /hpf (0-5); Urobilinogen,Urine Negative mg/dL (0.0-1.0); WBC,Urine 1867 /hpf (0-5)
[2024-10-28 18:07] LABS: Clarity,Urine Turbid (Clear/Hazy)
== END | disposition home or self-care (01) ==
LOC: SLDO 16:17
PROVIDERS: PCP Nurse Practitioner Family; Referring Provider Nurse Practitioner Family; Visit Provider Nurse Practitioner Family
DX: N30.00 Acute cystitis without hematuria (principal)
CPT/HCPCS: 81001; 87077; 87086; 87186

== ENCOUNTER 2024-12-20 16:14 | Emergency (ER) | payer MEDICARE, BC, SELFPAY ==
[2024-12-20 16:16] VITALS: BMI 21.9
[2024-12-20 16:25] VITALS: BP 143/67; PULSE 62; RESP 18; TEMP 36.9; O2SAT 97
[2024-12-20] MEDS: DIPHTH,PERTUSS(ACELL),TET VAC 0.5 ML SYR- ADULT IMi (17:15)
--- NOTE | 2024-12-20 17:44 | EDNOTE_ITS ---
<Statement entered by Naty Yanez MD - 12/30/24 19:38> As co-signing physician, I was present and available for consult prn. I concur with the plan and care as documented by the midlevel provider. ED Wound/Laceration-RME/HPI General Chief Complaint: Wound/Laceration Stated Complaint: LAC R) ARM Time Seen by Provider: 12/20/24 16:38 Source: patient Arrival date/time: 12/20/24 16:14 84-year-old male with no known medical history presents to the emergency room with a chief complaint of a skin tear to his right forearm. Patient states he was at the park and was sitting on a picnic table got up and cut himself 1 hour ago. Mode of arrival: ambulatory Limitations: no limitations Related Data Home Medications ?Medication ?Instructions ?Recorded ?Confirmed omeprazole 20 mg capsule,delayed 20 mg PO QDAY ##0 10/04/24 release (Prilosec) trazodone 50 mg tablet 100 mg PO HS 09/24/18 apixaban 5 mg tablet (Eliquis) 5 mg PO BID 06/09/23 Held on 05/31/24. Instructions: Resume on 06/02/24. losartan 25 mg tablet 25 mg PO QDAY 08/14/2310/04 rosuvastatin 5 mg tablet 5 mg PO QDAY 08/14/23 vibegron 75 mg tablet (Gemtesa) 75 mg PO QDAY 08/14/23 10/04/24 furosemide 20 mg tablet (Lasix) 20 mg PO BID 05/31/24 10/04/24 metoprolol tartrate 50 mg tablet 50 mg PO QDAY 4 10/04/24 spironolactone 25 mg tablet 25 mg PO BID 05/31/2409/20 tramadol 50 mg tablet 50 mg PO QDAY 06/03/2410/04 ciprofloxacin HCl 500 mg tablet 500 mg PO DIRECTED 08/15/24 10/04/24 Previous Rx's ?Medication ?Instructions ?Recorded acetaminophen 300 mg-codeine 30 mg 2 tab PO TID PRN pa in #4 tabs 06/15/24 tablet amoxicillin 875 mg-potassium 1 tab PO BID #4 tabs /11/12 clavulanate 125 mg tablet cephalexin 500 mg capsule 500 mg PO BID 7 days #14 cap s 12/20/24 Allergies Allergy/AdvReac Type Severity Reaction Status Date / Time Sulfa (Sulfonamide Allergy Severe UNKNOWN Verified 12/20/24 16:19 Antibiotics) Review of Systems Review of Systems Systems Reviewed: All systems reviewed, normal except as documented Constitutional Constitutional: Reports system reviewed and no additional complaints, except as documented, Denies fatigue, Denies fever(s), Denies headache(s) and Denies weakness Eyes Eyes: Reports system reviewed and no additional complaints, except as documented, Denies blurry vision and Denies change in vision ENT Ears, Nose, Mouth, and Throat: Reports system reviewed and no additional complaints, except as documented, Denies otalgia, Denies headache(s), Denies nasal congestion, Denies throat swelling and Denies vertigo Cardiovascular Cardiovascular: Reports system reviewed and no additional complaints, except as documented, Denies chest pain, Denies dyspnea and Denies dyspnea on exertion Respiratory Respiratory: Reports system reviewed and no additional complaints, except as documented, Denies chest congestion, Denies cough, Denies dyspnea, Denies dyspnea on exertion and Denies wheezing Gastrointestinal Gastrointestinal: Reports system reviewed and no additional complaints, except as documented, Denies abdominal pain, Denies cramping, Denies nausea and Denies vomiting Genitourinary Genitourinary: Reports system reviewed and no additional complaints, except as documented, Denies dysuria and Denies hematuria Musculoskeletal Musculoskeletal: Reports system reviewed and no additional complaints, except as documented and Denies back pain Integumentary/Breasts Skin/Breast: Reports system reviewed and no additional complaints, except as documented and Reports wounds Neurologic Neurologic: Reports system reviewed and no additional complaints, except as documented, Denies confusion, Denies headache(s), Denies lack of coordination, Denies vertigo and Denies weakness Psychiatric Psychiatric: Reports system reviewed and no additional complaints, except as documented, Denies anxiety, Denies confusion, Denies depression, Denies paranoia, Denies suicidal ideation and Denies tactile hallucinations Endocrine Endocrine: Reports system reviewed and no additional complaints, except as documented and Denies fatigue Hematologic/Lymphatic Hematologic/Lymphatic: Reports system reviewed and no additional complaints, except as documented and Denies lymphadenopathy Allergic/Immunologic Allergic/Immunologic: Reports system reviewed and no additional complaints, except as documented, Denies throat swelling, Denies urticaria and Denies wheezing ED Exam General Limitations: Present no limitations General appearance: Present alert and in no apparent distress Head Head exam: Present atraumatic Eye Eye exam: Present normal appearance, PERRL and EOMI ENT ENT exam: Present normal exam, normal oropharynx and mucous membranes moist Neck Neck exam: Present normal inspection, full ROM and trachea midline Chest Chest inspection: Present normal inspection and symmetric chest wall rise Respiratory Respiratory exam: Present normal lung sounds bilaterally Cardiovascular Cardiovascular exam: Present regular rate, normal rhythm and normal heart sounds Abdominal Exam Abdominal exam: Present soft and normal bowel sounds Extremities Exam Extremities exam: Present normal inspection and full ROM Back Exam Back exam: Present normal inspection and full ROM Neurological Exam Neurological exam: Present alert, oriented X3 and CN II-XII intact Psychiatric Psychiatric exam: Present normal affect and normal mood Skin Skin exam: Present warm, dry, intact and normal color Expanded Skin Exam Type of lesion: Present laceration and other (Skin tear) Distribution: Present RUE Description: Present tenderness Body image: 2 1. Skin tear to his right forearm Course Quality Measures none Orders Category Date Time Status Set Up Suture Tray STAT Care 12/20/24 16:38 Active Wound Care NOW Care 12/20/24 16:38 Active Lidocaine 1% 20 ml [Xylocaine 1% 20 ML] Med 12/20/24 16:38 Discontinued 20 ml INFL X1 ONE TET,DIP/PERT AC (Adult)-Tdap [Boostrix Adult (Tdap) Med 12/20/24 16:38 Discontinued Vacc] 0.5 ml IMI .ONCE ONE Vital Signs Vital signs: Vital Signs Temperature 98.4 F 12/20/24 16:25 Pulse Rate 62 12/20/24 16:25 Respiratory Rate 18 12/20/24 16:25 Blood Pressure 143/67 H 12/20/24 16:25 Pulse Oximetry (%) 97 12/20/24 16:25 Oxygen Delivery Method Room Air 12/20/24 16:25 Wound / Laceration MDM Narrative MDM Narrative:: 84-year-old male with no known medical history presents to the emergency room with a chief complaint of a skin tear to his right forearm. Patient states he was at the park and was sitting on a picnic table got up and cut himself 1 hour ago. Patient is hemodynamically stable and in no apparent distress Physical examination shows an irregular skin tear to his right forearm. The skin tear is about 6 cm. There is no deep laceration area is very superficial. Area was cleaned and prepped and irrigated. It was irrigated with normal saline and cleaned and prepped with Betadine. There is no need to suture the skin tear what I did was get the edges as close as possible and Dermabond it. The area was closed and approximated using Dermabond and the patient was educated to follow-up with his primary care provider. Patient was discharged and educated to follow-up with primary care provider in the next 24 to 48 hours and return to the emergency room for any evidence of worsening signs or symptoms Patient data External records reviewed:: [facility] previous records Clinical information provided by:: patient Social determinants that could affect healthcare access:: none Patient has the following chronic illnesses:: No chronic illness How is presenting disease/condition affected by chronic disease/condition?: no chronic disease Evaluation data The following diagnostics were reviewed and interpreted by me:: lab results and radiology exam(s) Lab and/or radiology exams considered but not ordered:: Labs and radiology exams considered in Interpretation Summary: N/A Medications / Prescriptions Medications or Prescriptions considered but not ordered:: Medication given Medication administrations:: Medication Administration History Discontinued Medications Diphtheria/Tetanus/Acell Pertussis (Diphth,Pertuss(Acell),Tet Vac 0.5 Ml Syr- Adult) 0.5 ml IMi .ONCE ONE Stop: 12/20/24 16:39 Last Admin: 12/20/24 17:15 Dose: 0.5 ml Documented By: REX Lidocaine HCl (Lidocaine Hcl 1% 20 Ml Vial) 20 ml INFL X1 ONE Stop: 12/20/24 16:39 Last Admin: 12/20/24 17:16 Dose: Not Given Documented By: REX Non-Admin Reason: Cancelled by Provider Medication given Consultations Consultation(s) initiated? (list below): No Diagnosis Wound Differential Diagnosis: laceration, abscess and avulsion of skin Most likely diagnosis given after review of the tests above:: Avulsion of skin Admission Indicated Admission indicated?: not indicated Admission Request Was there a request for admission?: No Disposition Plan Disposition Plan: Discharge Discharge Attestation Discharge Attestation: The patient and all family members were given an opportunity to ask questions and understood the discharge instructions. Discharge instructions specifically effects, indications for sooner follow up or return to the emergency department, and the expected course of current diagnosis. Patient condition: Stable Discharge Plan Plan Patient Disposition: HOME (Self Care) Discharge Disposition comment: Stable Prescriptions/Referrals Prescriptions/Med Rec: New cephalexin 500 mg capsule 500 mg PO BID 7 Days Qty: 14 0RF No Action losartan 25 mg tablet 25 mg PO QDAY rosuvastatin 5 mg tablet 5 mg PO QDAY Gemtesa 75 mg tablet 75 mg PO QDAY tramadol 50 mg tablet 50 mg PO QDAY Eliquis 5 mg tablet 5 mg PO BID ciprofloxacin HCl 500 mg tablet 500 mg PO DIRECTED Patient Comments: take bid for 7 days, then once a day after that. omeprazole [Prilosec] 20 MG capsule,delayed release(DR/EC) 20 mg PO QDAY Qty: 0 Patient Comments: TO SUPPRESS GASTRIC ACID SECRETIONS trazodone 50 mg Tablet 100 mg PO HS spironolactone 25 mg Tablet 25 mg PO BID metoprolol tartrate 50 mg Tablet 50 mg PO QDAY furosemide [Lasix] 20 mg Tablet 20 mg PO BID acetaminophen-codeine 300-30 mg tablet 2 tab PO TID MDD 6 PRN (Reason: pain) Qty: 4 0RF amoxicillin-pot clavulanate 875-125 mg tablet 1 tab PO BID Qty: 4 0RF Problem List Clinical Impression: Skin tear of forearm without complication Patient/Caregiver Discharge Instructions Education Materials: ED Laceration: Skin Adhesive Additional Instructions: Please follow-up with your primary care provider in the next 24 to 48 hours Your skin tear was closed and approximated using Dermabond. A dressing was placed. Please keep this dressing in place for the next 24 to 48 hours Afterwards you can clean it with soap and water. Antibiotics were sent to your pharmacy to help prevent any infection For any evidence of worsening signs or symptoms return to the emergency room immediately Print Language: Tamazight Stand Alone Forms: Keli Award Info., Patient Portal Info Letter PA/JASON Supervising Physician GAGAN/JASON Supervising Physician: Dr. YANEZ
[2024-12-20 18:05] VITALS: BP 130/66; PULSE 72; RESP 18; TEMP 36.5; O2SAT 99
== END 2024-12-20 18:05 | disposition home or self-care (01) ==
LOC: SERX 18:13
PROVIDERS: Emergency Provider Emergency Medicine; PCP Family Medicine
DX: S51.811A Laceration without foreign body of right forearm, initial encounter (principal); W45.8XXA Other foreign body or object entering through skin, initial encounter; Y92.830 Public park as the place of occurrence of the external cause; Z23 Encounter for immunization
CPT/HCPCS: 12002; 90715; 99283

== ENCOUNTER 2025-02-16 13:53 | Outpatient (RCR) | payer MEDICARE, BC, SELFPAY ==
--- NOTE | 2025-02-17 09:51 | PTNOTE_ITS ---
PT OP Initial Eval Patient Information Outpatient Physical Therapy Treatment Date: 02/16/25 Visit Reasons: low back pain Medical Diagnosis: Low back pain; scoliosis, stenosis, DDD Treatment Dx #1: Back Pain Start of Care: 02/17/25 Date of Onset: 1 year ago Smoking Status Smoking Status: Never smoker Initial Assessment Subjective: Pt is a 84 y/o male reports of chronic right back pain (5/10) intermittently started after he fell ~ 1 year ago. Pt's most recent imaging found scoliosis, DDD, and stenosis in the lumbar region. Pt denies of pain down the legs. Pt has limitation with prolonged sitting, standing, chores, self care, cooking, cleaning, walking, and performing recreational activities. Pt had aortic valva replacement in August and started cardiopulmonary rehab at [facility] ~ 2 weeks ago Objective: L/S AROM (in sitting ): all motions are WFL except neutral with extension due to pain Hip PROM: all motions are WFL Hip MMTs L: grossly 3+/5 R: 3/5 Muscle Length: Hs tightness Palpation: TTP and hypomobile right L4-L5 facets Assessment: Pt demonstrate back pain consistent with facet syndrome leading to difficulty with ADLs. Pt will attempt physical therapy if pain persist Pt will be refer back to specialist for further consultation. Short Term and Senior Living Goals 1) Increase L/S AROM WFL in 6 wks to be able to sit and stand more than 30 mins 2) Increase core strength WFL in 6 wks to be able to perform recreational activities 3) Increase hip MMTs grossly to 4-/5 in 6 wks to be able to walk more than 30 mins 4) Decrease back pain to 2/10 in 6 wks to be able to perform chores 5) Indep with HEP Treatment Plan 1) Manual Therapy 2) Therapeutic Activities 3) Therapeutic Exercises 4) Modalities (ice, heat) Frequency and Duration: 2 x wk for 6 wks Certification Dates: 02/17/25 to 05/20/25 Procedure Charges OP PT Eval Mod Complex 30 minutes: Yes
== END 2025-02-19 23:59 | disposition home or self-care (01) ==
LOC: CPTX 13:53
PROVIDERS: PCP Nurse Practitioner Family; Referring Provider Nurse Practitioner Family; Visit Provider Nurse Practitioner Family
DX: M51.360 Other intervertebral disc degeneration, lumbar region with discogenic back pain only (principal); M41.9 Scoliosis, unspecified; M48.061 Spinal stenosis, lumbar region without neurogenic claudication; R26.2 Difficulty in walking, not elsewhere classified; G89.29 Other chronic pain
CPT/HCPCS: 97162

== ENCOUNTER 2025-03-14 14:30 | Outpatient (RCR) | payer MEDICARE, BC, SELFPAY ==
--- NOTE | 2025-02-21 16:05 | PT.ODAYNRPT ---
PT Outpatient Daily Note OP Daily Note Outpatient Physical Therapy Treatment Date: 02/21/25 Visit Reasons: LOW BACK PAIN Subjective: Pt's back is okay and continues to have pain on the right side. Pt has cardiopulmonary rehab mondays and wednesdays Objective: Please see flow chart for list of ther ex performed Assessment: only able to tolerate 10-15 reps for each exercises due to fatigue. Minimal changes in pain post PT session Plan: Continue with PT Length of Time (minutes) of Treatment: 30 Minutes Procedure Charges Therapeutic Exercise 30 minutes: Yes
--- NOTE | 2025-02-28 15:06 | PT.ODAYNRPT ---
PT Outpatient Daily Note OP Daily Note Outpatient Physical Therapy Treatment Date: 02/28/25 Visit Reasons: LOW BACK PAIN Subjective: Pt's back is sore and overall very exhausted after last PT session. Pt's back still ache intermittently on the right side. Objective: Please see flow chart for list of ther ex performed Assessment: educated patient about DOMS and how it affects muscle pain. Pt is okay with possibly changing therapy to 1x weekly for his back and 2x weekly for cardiopulmonary moving forward since back to back session is causing over exhaustion. Pt reports of decrease back pain post PT session Plan: Continue with PT Length of Time (minutes) of Treatment: 30 Minutes Procedure Charges Therapeutic Exercise 30 minutes: Yes
--- NOTE | 2025-03-03 14:32 | PT.ODAYNRPT ---
PT Outpatient Daily Note OP Daily Note Outpatient Physical Therapy Treatment Date: 03/03/25 Visit Reasons: LOW BACK PAIN Subjective: Pt's back is sore and ache. Pt notice minimal improvement of the pain Objective: Please see flow chart for list of ther ex performed Assessment: repots of soreness post STM. Pt exhibit improvement with Hs length bilaterally Plan: Continue with PT Length of Time (minutes) of Treatment: 30 Minutes Procedure Charges Therapeutic Exercise 15 minutes: Yes Manual Store Stock Associate 15 minutes: Yes
--- NOTE | 2025-03-14 14:38 | PT.ODAYNRPT ---
PT Outpatient Daily Note OP Daily Note Outpatient Physical Therapy Treatment Date: 03/14/25 Visit Reasons: LOW BACK PAIN Subjective: Pt's back continues to ache. Pt mention STM made him more sore after last session. Pt wants to continue to use the heat for the back. Objective: Please see flow chart for list of ther ex performed Assessment: notice reports of less back pain with supine exercises and stretching today. Pt sore post STM. Plan: Continue with PT Length of Time (minutes) of Treatment: 30 Minutes Procedure Charges Therapeutic Exercise 15 minutes: Yes Manual Racker Octave Board 15 minutes: Yes
== END 2025-03-21 23:59 | disposition home or self-care (01) ==
LOC: CPTX 14:30
PROVIDERS: PCP Nurse Practitioner Family; Referring Provider Nurse Practitioner Family; Visit Provider Nurse Practitioner Family
DX: M51.360 Other intervertebral disc degeneration, lumbar region with discogenic back pain only (principal); M41.86 Other forms of scoliosis, lumbar region; M48.061 Spinal stenosis, lumbar region without neurogenic claudication
CPT/HCPCS: 97110; 97140

== ENCOUNTER 2025-03-27 16:36 | Emergency (ER) | payer MEDICARE, BC, SELFPAY ==
--- NOTE | 2025-03-27 16:41 | EKG_ITS ---
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
[2025-03-27 16:42] VITALS: BP 153/70; PULSE 68; RESP 20; TEMP 37.2; O2SAT 95; BMI 23.0
--- NOTE | 2025-03-27 17:06 | XR_ITS ---
Examination: PA lateral chest 2 views Technique: Upright PA lateral chest 2 views Date and time: March 27, 2025, 1726 hrs., Comparison May 26, 2023 Indications: Chest pain shortness of breath today. Findings: Normal heart size Transcatheter aortic valve. Mild prominence pulmonary vasculature. No pneumonia or pulmonary edema Impression: Mild prominence pulmonary vasculature
--- NOTE | 2025-03-27 17:07 | PD.EDRME ---
Rapid Medical Screening Exam RME Arrival date/time: 03/27/25 16:36 85-year-old male with a history of a valve replacement, atrial fibrillation, presents to the emergency room with a chief complaint of a near syncopal episode that occurred today I have greeted and performed a focused initial assessment of this patient. A comprehensive ED assessment and evaluation of the patient, analysis of all test results, and completion of the medical decision making process will be conducted by additional ED providers. Chief Complaint: General Adult/Misc Complain Vital signs: Vital Signs Temperature 98.9 F 03/27/25 16:42 Pulse Rate 68 03/27/25 16:42 Respiratory Rate 20 03/27/25 16:42 Blood Pressure 153/70 H 03/27/25 16:42 Pulse Oximetry (%) 95 03/27/25 16:42 Oxygen Delivery Method Room Air 03/27/25 16:42 Vital signs reviewed by provider: Yes
[2025-03-27 17:45] LABS: Basophils # (Auto) 0.0 Thou/mm3 (0.0-0.2); Basophils % (Auto) 1 % (0-2.5); Eosinophils # (Auto) 0.2 Thou/mm3 (0.0-0.5); Eosinophils % (Auto) 3 % (0-10); Hematocrit 36.5 % (41.0-53.0); Hemoglobin 12.5 g/dL (13.5-16.0); Immature Granulocytes Auto 0.01 Thou/mm3 (0.00-0.00); Lymphocytes # (Auto) 0.8 Thou/mm3 (1.0-4.8); Lymphocytes % (Auto) 12 % (10-50); Mean Corpuscular HGB Conc 34.2 g/dl (31.0-37.0); Mean Corpuscular Hemoglobin 31.9 pg (25.0-35.0); Mean Corpuscular Volume 93 fL (80-100); Monocytes # (Auto) 0.9 Thou/mm3 (0.0-0.8); Monocytes % (Auto) 13 % (0-12); Neutrophils # (Auto) 4.9 Thou/mm3 (1.8-7.7); Neutrophils % (Auto) 72 % (37-80); Nucleated Red Blood Cell # 0.00 Thou/mm3 (0.00-0.00); Nucleated Red Blood Cell % 0 /100 WBC (0); Platelet Count 167 Thou/mm3 (140-440); RDW Standard Deviation 42.3 fL (35.1-43.9); Red Blood Count 3.92 Miln/mm3 (4.50-5.90); White Blood Count 6.9 Thou/mm3 (3.8-10.6)
[2025-03-27 17:52] LABS: INR 1.0 (0.9-1.3); Partial Thromboplastin Time 27.5 Seconds (22.0-36.0); Prothrombin Time 10.9 Seconds (9.0-12.2)
[2025-03-27 17:58] LABS: B-Type Natriuretic Peptide 134 pg/mL (0-100)
[2025-03-27 18:02] LABS: Alanine Aminotransferase 14 U/L (10-49); Albumin, Serum 4.5 gm/dL (3.4-4.8); Albumin/Globulin Ratio 3.0 (1.2-2.2); Alkaline Phosphatase 62 U/L (46-116); Anion Gap 9 (7-16); Aspartate Amino Transferase 24 U/L (0-34); BUN/Creatinine Ratio 12 Ratio (12-20); Bilirubin,Total 0.6 mg/dL (0.3-1.2); Blood Urea Nitrogen 13 mg/dL (9-23); Calcium 9.1 mg/dL (8.3-10.6); Calcium (Corrected) 9.1 mg/dL (8.5-10.1); Carbon Dioxide 27.3 mMol/L (20.0-31.0); Chloride 97 mMol/L (98-107); Creatinine (Component) 1.1 mg/dL (0.6-1.3); Estimated Creatinine Clearance 53.5 mL/min (>60); Globulin 1.5 gm/dL (2.3-3.5); Glucose 127 mg/dL (74-106); LDH (Lactate Dehydrogenase) 239 U/L (120-246); Magnesium 2.0 mg/dL (1.6-2.6); Osmolality,Calculated 268 (275-295); Potassium 4.8 mMol/L (3.4-5.1); Sodium 133 mMol/L (136-145); Total Protein 6.0 gm/dL (5.7-8.2); eGFR > 60 See Note
[2025-03-27 18:04] LABS: Troponin I 0.047 ng/mL (0.0-0.045)
[2025-03-27 18:12] LABS: Collection Type, Urine Clean Catch; Squamous Epithelial Cell,Urine 0 /hpf (0-5)
--- NOTE | 2025-03-27 18:33 | PD.EDADULT ---
ED General RME/HPI General Chief complaint: General Adult/Misc Complain Stated complaint: SENT BY PCP FOR QUESTIONABLE EKG Time Seen by Provider: 03/27/25 18:15 Arrival date/time: 03/27/25 16:36 RME / HPI RME / HPI narrative: 03/27/25 16:36 Gregorio is a 85 y/o male with PMHx of Afib, TAVR, HTN who comes in for evaluation of presyncopal feelings, and weakness. Patient reports that he has had similar symptoms to this before. He also said he did not pass out. He says that he recently had a TAVR done procedure in [place]. His english language learner tutor is Dr. Crane. He denies any chest pain, shortness of breath, numbness, tingling at this time. He has been taking his medicines as prescribed. He denies any recent sick contacts or travel. Related Data Home Medications ?Medication ?Instructions ?Recorded ?Confirmed omeprazole 20 mg capsule,delayed 20 mg PO QDAY ##0 07/19/15 10/04/24 release (Prilosec) trazodone 50 mg tablet 100 mg PO HS 09/24/18 10/04/24 apixaban 5 mg tablet (Eliquis) 5 mg PO BID 06/09/23 10/04/24 Held on 05/31/24. Instructions: Resume on 06/02/24. losartan 25 mg tablet 25 mg PO QDAY 08/14/23 10/04/24 rosuvastatin 5 mg tablet 5 mg PO QDAY 08/14/23 10/04/24 vibegron 75 mg tablet (Gemtesa) 75 mg PO QDAY 08/14/23 10/04/24 furosemide 20 mg tablet (Lasix) 20 mg PO BID 05/31/24 10/04/24 metoprolol tartrate 50 mg tablet 50 mg PO QDAY 05/31/24 10/04/24 spironolactone 25 mg tablet 25 mg PO BID 05/31/24 10/04/24 tramadol 50 mg tablet 50 mg PO QDAY 06/03/24 10/04/24 ciprofloxacin HCl 500 mg tablet 500 mg PO DIRECTED 08/15/24 10/04/24 Previous Rx's ?Medication ?Instructions ?Recorded acetaminophen 300 mg-codeine 30 mg 2 tab PO TID PRN pain #4 tabs 06/15/24 tablet amoxicillin 875 mg-potassium 1 tab PO BID #4 tabs 06/15/24 clavulanate 125 mg tablet Allergies Allergy/AdvReac Type Severity Reaction Status Date / Time Sulfa (Sulfonamide Allergy Severe UNKNOWN Verified 03/27/25 16:40 Antibiotics) Review of Systems Review of Systems Narrative Review of Systems: 12 point ROS reviewed and is otherwise negative unless stated directly in the HPI ED Exam Narrative Physical exam: General: AAOx3, NAD, elderly male, uses a cane to walk HEENT: Moist mucous membranes, conjunctiva clear, EOMI, PERRLA, Cardiovascular: S1, S2, radial pulses +2 bilat, RRR Pulmonary: CTAB bilat no cough, no wheezing GI: No tenderness to light or deep palpitation, no guarding, rigidity, rebound tenderness or distension Extremities: No presence of trace or pitting edema in lower extremities bilaterally, dorsalis pedis pulses +2 bilaterally Neuro: AAOx3, no focal motor or sensory deficits in the UE or LE bilat Psych: Good judgement, thought and behavior Course Quality Measures none Orders Category Date Time Status EKG (ED ONLY) *Do not use* NOW Care 03/27/25 16:41 Completed EKG (ED ONLY) *Do not use* NOW Care 03/27/25 19:14 Completed Orthostatic Vitals NOW Care 03/27/25 18:32 Active EKG (ED Only) Stat Exams 03/27/25 16:41 Draft EKG (ED Only) Stat Exams 03/27/25 19:14 Draft XR chest 2V Stat Exams 03/27/25 17:06 Completed B-Type Natriuretic Peptide Stat Lab 03/27/25 17:18 Completed CBC Stat Lab 03/27/25 17:18 Completed Comprehensive Metabolic Panel Stat Lab 03/27/25 17:18 Completed LDH (Lactate Dehydrogenase) Stat Lab 03/27/25 17:18 Completed Magnesium Stat Lab 03/27/25 17:18 Completed Partial Thromboplastin Time Stat Lab 03/27/25 17:18 Completed Prothrombin Time with INR Stat Lab 03/27/25 17:18 Completed Troponin I Stat Lab 03/27/25 17:18 Completed Troponin I Stat Lab 03/27/25 19:41 Completed Urinalysis, C/S if Indicated Stat Lab 03/27/25 18:08 Completed Urine Culture Stat Lab 03/27/25 18:08 Received Acetaminophen Tab [Tylenol Tab] Med 03/27/25 18:33 Discontinued 650 mg PO X1 ONE Losartan [Cozaar] Med 03/27/25 19:21 Discontinued 50 mg PO X1 ONE Vital Signs Vital signs: Vital Signs Temperature 98.9 F 03/27/25 16:42 Pulse Rate 68 03/27/25 16:42 Respiratory Rate 20 03/27/25 16:42 Blood Pressure 153/70 H 03/27/25 16:42 Pulse Oximetry (%) 95 03/27/25 16:42 Oxygen Delivery Method Room Air 03/27/25 16:42 Discharge Plan Plan Patient Disposition: HOME (Self Care) Prescriptions/Referrals Prescriptions/Med Rec: No Action losartan 25 mg tablet 25 mg PO QDAY rosuvastatin 5 mg tablet 5 mg PO QDAY Gemtesa 75 mg tablet 75 mg PO QDAY tramadol 50 mg tablet 50 mg PO QDAY Eliquis 5 mg tablet 5 mg PO BID ciprofloxacin HCl 500 mg tablet 500 mg PO DIRECTED Patient Comments: take bid for 7 days, then once a day after that. omeprazole [Prilosec] 20 MG capsule,delayed release(DR/EC) 20 mg PO QDAY Qty: 0 Patient Comments: TO SUPPRESS GASTRIC ACID SECRETIONS trazodone 50 mg Tablet 100 mg PO HS spironolactone 25 mg Tablet 25 mg PO BID metoprolol tartrate 50 mg Tablet 50 mg PO QDAY furosemide [Lasix] 20 mg Tablet 20 mg PO BID acetaminophen-codeine 300-30 mg tablet 2 tab PO TID MDD 6 PRN (Reason: pain) Qty: 4 0RF amoxicillin-pot clavulanate 875-125 mg tablet 1 tab PO BID Qty: 4 0RF Referrals: Sabino Crane MD [Physician, Cardiology] - In 1 week Ana Swann MD [Primary Care Provider, Family Practice] - In 1 week Problem List Clinical Impression: Weakness Patient/Caregiver Discharge Instructions Print Language: Urdu Stand Alone Forms: Keli Award Info., Patient Portal Info Letter MDM Narrative MDM hospital course (for use when minimal MDM required): 1832: Will order repeat troponin, adminster Tylenol and perform orthostatic vitals 2112: Second troponin elevated at 0.058, repeat EKG shows A-fib with slow ventricular response, spoke with english language learner tutor, Dr. Crane who recommends patient to be medically cleared for discharge. Patient blood pressure has come down with addition of losartan 50 mg. Orthostatic vitals wnl. Patient medically cleared for discharge. Medication Administration(s) Medication Administration History Discontinued Medications Acetaminophen (Acetaminophen 325 Mg Tablet) 650 mg PO X1 ONE Stop: 03/27/25 18:34 Last Admin: 03/27/25 19:00 Dose: 650 mg Documented By: BD Losartan Potassium (Losartan Potassium 25 Mg Tablet) 50 mg PO X1 ONE Stop: 03/27/25 19:22 Last Admin: 03/27/25 19:41 Dose: 50 mg Documented By: OA
[2025-03-27 18:37] LABS: Bacteria,Urine 2+; Bilirubin,Urine Negative (Negative); Blood,Urine 1+ (Negative); Color,Urine Yellow (Lt Yel-Yel); Glucose, Urine Negative (Negative); Ketones,Urine Negative (Negative); Leukocyte Esterase,Urine Positive (Negative); Nitrite,Urine Negative (Negative); PH,Urine 6.0 (5.0-7.0); Protein,Urine Trace (Neg - Trace); RBC,Urine 89 /hpf (0-3); Specific Gravity,Urine 1.012 (1.001-1.035); Urobilinogen,Urine Negative mg/dL (0.0-1.0); WBC,Urine 3878 /hpf (0-5)
[2025-03-27 18:38] LABS: Clarity,Urine Turbid (Clear/Hazy); Culture Indicated,Urine Yes
[2025-03-27] MEDS: ACETAMINOPHEN 325 MG TABLET 650 MG PO (19:00)
[2025-03-27 19:05] VITALS: BP 163/81; BP 168/82; BP 175/76; PULSE 56; PULSE 57; PULSE 63
--- NOTE | 2025-03-27 19:14 | EKG_ITS ---
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
[2025-03-27 19:41] VITALS: BP 168/82; PULSE 57
[2025-03-27] MEDS: LOSARTAN POTASSIUM 25 MG TABLET 50 MG PO (19:41)
[2025-03-27 20:32] LABS: Troponin I 0.058 ng/mL (0.0-0.045)
[2025-03-27 20:50] VITALS: BP 152/84; PULSE 54; RESP 16; TEMP 36.4; O2SAT 96
== END 2025-03-27 21:30 | disposition home or self-care (01) ==
PROVIDERS: Nurse Practitioner Family; Emergency Provider Emergency Medicine; PCP Family Medicine
DX: R53.1 Weakness (principal); I48.91 Unspecified atrial fibrillation; R07.9 Chest pain, unspecified; R06.02 Shortness of breath; Z79.01 Long term (current) use of anticoagulants
CPT/HCPCS: 36415; 71046; 80053; 81001; 83615; 83735; 83880; 84484; 85025; 85610; 85730; 87077; 87086; 87186; 93005; 99284; A9270

== ENCOUNTER → 2025-04-07 | Outpatient (CLI) | payer MEDICARE, BC, SELFPAY ==
[2025-04-07 13:14] LABS: Basophils # (Auto) 0.0 Thou/mm3 (0.0-0.2); Basophils % (Auto) 1 % (0-2.5); Eosinophils # (Auto) 0.1 Thou/mm3 (0.0-0.5); Eosinophils % (Auto) 2 % (0-10); Hematocrit 37.9 % (41.0-53.0); Hemoglobin 12.9 g/dL (13.5-16.0); Immature Granulocytes Auto 0.01 Thou/mm3 (0.00-0.00); Lymphocytes # (Auto) 0.6 Thou/mm3 (1.0-4.8); Lymphocytes % (Auto) 10 % (10-50); Mean Corpuscular HGB Conc 34.0 g/dl (31.0-37.0); Mean Corpuscular Hemoglobin 31.7 pg (25.0-35.0); Mean Corpuscular Volume 93 fL (80-100); Monocytes # (Auto) 0.9 Thou/mm3 (0.0-0.8); Monocytes % (Auto) 14 % (0-12); Neutrophils # (Auto) 4.8 Thou/mm3 (1.8-7.7); Neutrophils % (Auto) 75 % (37-80); Nucleated Red Blood Cell # 0.00 Thou/mm3 (0.00-0.00); Nucleated Red Blood Cell % 0 /100 WBC (0); Platelet Count 177 Thou/mm3 (140-440); RDW Standard Deviation 43.1 fL (35.1-43.9); Red Blood Count 4.07 Miln/mm3 (4.50-5.90); White Blood Count 6.4 Thou/mm3 (3.8-10.6)
[2025-04-07 13:24] LABS: Glucose Estimated Average 120 mg/dL (80-131); Hemoglobin A1C 5.8 % Hgb (4.8-6.0)
[2025-04-07 13:28] LABS: Alanine Aminotransferase 15 U/L (10-49); Albumin, Serum 4.5 gm/dL (3.4-4.8); Albumin/Globulin Ratio 3.0 (1.2-2.2); Alkaline Phosphatase 62 U/L (46-116); Anion Gap 8 (7-16); Aspartate Amino Transferase 24 U/L (0-34); BUN/Creatinine Ratio 11 Ratio (12-20); Bilirubin,Total 0.6 mg/dL (0.3-1.2); Blood Urea Nitrogen 11 mg/dL (9-23); Calcium 9.5 mg/dL (8.3-10.6); Calcium (Corrected) 9.5 mg/dL (8.5-10.1); Carbon Dioxide 31.1 mMol/L (20.0-31.0); Cardiac Risk Estimate 1.9 RATIO (4.0-6.7); Chloride 95 mMol/L (98-107); Cholesterol 137 mg/dL (132-200); Creatinine (Component) 1.0 mg/dL (0.6-1.3); Globulin 1.5 gm/dL (2.3-3.5); Glucose 92 mg/dL (74-106); HDL Cholesterol 74 mg/dL (40-60); LDL Cholesterol,Calculated 56 mg/dL (0-130); Osmolality,Calculated 267 (275-295); Potassium 4.4 mMol/L (3.4-5.1); Sodium 134 mMol/L (136-145); Thyroid Stimulating Hormone 4.59 uIU/mL (0.55-4.78); Total Protein 6.0 gm/dL (5.7-8.2); Triglycerides 33 mg/dL (30-150); eGFR > 60 See Note
[2025-04-07 13:31] LABS: Prostate Specific Antigen 5.39 ng/mL (0-4.00)
== END | disposition home or self-care (01) ==
LOC: COPL 12:34
PROVIDERS: PCP Family Medicine; Referring Provider Nurse Practitioner Family; Visit Provider Nurse Practitioner Family
DX: E03.9 Hypothyroidism, unspecified (principal)
CPT/HCPCS: 36415; 80053; 80061; 83036; 84153; 84443; 85025

== ENCOUNTER 2025-04-12 14:30 | Outpatient (RCR) | payer MEDICARE, BC, SELFPAY ==
--- NOTE | 2025-03-23 15:24 | PT.ODAYNRPT ---
PT Outpatient Daily Note OP Daily Note Outpatient Physical Therapy Treatment Date: 03/23/25 Visit Reasons: Low back pain Subjective: Pt's back feels a little better with physical therapy. Pt feels most pain when bending down vs to upright position. Objective: Please see flow chart for list of ther ex performed Assessment: continue to improve with Hs length. Pt demonstrate mild pain with L/S flexion with SB but able to complete instructed reps Plan: Continue with PT Length of Time (minutes) of Treatment: 30 Minutes Procedure Charges Therapeutic Exercise 15 minutes: Yes Manual Business Intelligence Consultant 15 minutes: Yes
--- NOTE | 2025-03-31 15:36 | PT.ODAYNRPT ---
PT Outpatient Daily Note OP Daily Note Outpatient Physical Therapy Treatment Date: 03/31/25 Visit Reasons: Low back pain Subjective: Pt's back is better with physical therapy and will like to continue. Objective: Please see flow chart for list of ther ex performed Assessment: less cues to correct supine exercises. Decrease TTP during STM to the lower back in sidelying position Plan: Continue with PT Length of Time (minutes) of Treatment: 30 Minutes Procedure Charges Therapeutic Exercise 30 minutes: Yes
--- NOTE | 2025-04-12 15:05 | PTNOTE_ITS ---
PT Outpatient Daily Note OP Daily Note Outpatient Physical Therapy Treatment Date: 04/12/25 Visit Reasons: Low back pain Subjective: Pt's back pain seem worsening and has difficulty sleeping. Pt wants to try one more session to decide if he should continue or discontinue physical therapy. Objective: Please see flow chart for list of ther ex performed Assessment: STM helped decrease back pain. all reps with exercises decrease to 10 reps since patient reported of increase back pain prior to PT session Plan: Continue with PT Length of Time (minutes) of Treatment: 30 Minutes Procedure Charges Therapeutic Exercise 15 minutes: Yes Manual Pairing Machine Operator 15 minutes: Yes
--- NOTE | 2025-05-11 12:55 | PT.ODS1RPT ---
PT OP Progress/Discharge Note Date of Service: 05/11/25 Progress Note/DC Note Progress Note/Discharge Note: DC Note Patient Information Visit Reasons: Low back pain Service Discharge Date: 05/11/25 Status Assessment: Pt has been seen for 8 visits (eval + 7 visits). Pt last treated on 04/12/25 and has not returned to therapy. Called patient 05/11/25 and will follow up with MD for a new PT order. Pt did not meet set goals in therapy; thank you for your referrals.
== END 2025-04-21 23:59 | disposition home or self-care (01) ==
LOC: CPTX 14:30
PROVIDERS: PCP Nurse Practitioner Family; Referring Provider Nurse Practitioner Family; Visit Provider Nurse Practitioner Family
DX: M51.360 Other intervertebral disc degeneration, lumbar region with discogenic back pain only (principal); M41.86 Other forms of scoliosis, lumbar region; R26.2 Difficulty in walking, not elsewhere classified
CPT/HCPCS: 97110; 97140

== ENCOUNTER → 2025-05-26 | Outpatient (BNVA) | payer MEDICARE, BC, SELFPAY | END | disposition home or self-care (01) | PROVIDERS: PCP Family Medicine; Referring Provider Family Medicine; Visit Provider Urology | DX: N40.1 Benign prostatic hyperplasia with lower urinary tract symptoms (principal); N13.8 Other obstructive and reflux uropathy; R97.20 Elevated prostate specific antigen [PSA]; I10 Essential (primary) hypertension; Z95.2 Presence of prosthetic heart valve | CPT/HCPCS: 81003; 99212; G0463 ==

== ENCOUNTER → 2025-05-26 | Outpatient (CLI) | payer MEDICARE, BC, SELFPAY | END | disposition home or self-care (01) | LOC: SLDO 13:51 | PROVIDERS: Referring Provider Urology; Visit Provider Urology | DX: N39.0 Urinary tract infection, site not specified (principal) | CPT/HCPCS: 87077; 87086; 87186 ==